=== PATIENT | female | born 1950 | race Hispanic/Latino ===

== ENCOUNTER → 2018-05-29 | Outpatient (CLI) | payer MEDICARE ==
[~2018-05-29] MED LIST: IOPAMIDOL 370 MG/ML 200 ML INFUS..BTL INJ ONE; SODIUM CHLORIDE 0.9% 50ML 50 ML ONE
[2018-05-29 08:48] LABS: BLOOD UREA NITROGEN 17 mg/dL (7-26); BUN/CREATININE RATIO 25 (6-25); CREATININE, SERUM 0.69 mg/dL (0.57-1.11); EST GLOMERULAR FILTRATION RATE > 60 ML/MIN (60-)
--- NOTE | 2018-05-29 09:46 | Diagnostic Imaging Report ---
EXAM: CT Abdomen and Pelvis WITH contrast INDICATION: Portal hypertension. COMPARISON: None. TECHNIQUE: Abdomen and pelvis were scanned utilizing a multidetector helical scanner from the lung base to the pubic symphysis after administration of IV contrast. Coronal and sagittal reformations were obtained. Routine protocol was performed. Scan was performed when during portal venous phase. IV CONTRAST: 100 cc of Isovue 370 ORAL CONTRAST: Water COMPLICATIONS: None RADIATION DOSE: Total DLP: 730.7 mGy*cm CTDIvol has been reviewed. It is below the limits set by the Radiation Protocol Committee (RPC). Dose modulation, iterative reconstruction, and/or weight based adjustment of the mA/kV was utilized to reduce the radiation dose to as low as reasonably achievable. FINDINGS: LINES and TUBES: None. LOWER THORAX: Unremarkable HEPATOBILIARY: Diffuse mild fatty liver and mildly nodular contour to the liver. Subcentimeter hyperdense focus in the right hepatic lobe measuring 8 mm on series 2, image 18. Calcified foci peripherally in the posterior right hepatic lobe may represent granulomas or potentially dropped gallstones if extrinsic to the liver. No biliary ductal dilation. Status post cholecystectomy. SPLEEN: Mild splenomegaly measuring 14.4 cm. Subcentimeter lesion within the spleen may represent a cyst or hemangioma. PANCREAS: No focal masses or ductal dilatation. ADRENALS: No adrenal nodules KIDNEYS/URETERS: Kidneys enhance symmetrically. No evidence of hydronephrosis, solid mass, or stone. GI TRACT: Small hiatal hernia. No evidence of wall thickening or distension. Appendix is normal. PELVIC ORGANS/BLADDER: Status post hysterectomy. The bladder is unremarkable. LYMPH NODES: No lymphadenopathy. VESSELS: There are scattered atherosclerotic calcifications in the aorta and branch vessels. PERITONEUM / RETROPERITONEUM: No free air or fluid. BONES AND SOFT TISSUES: No acute osseous abnormality. Grade 1 anterolisthesis of L5 on S1 with bilateral pars defects. Mild degenerative disc changes of the lumbar spine. CONCLUSION: Subcentimeter hyperdense focus in the right hepatic lobe is indeterminate by CT and a liver protocol CT or MRI may be considered for further evaluation in the setting of liver dysfunction. Hepatic steatosis and mildly nodular contour to the liver. Mild splenomegaly. Signed by: Dr. Magaly Gonzalez MD on 05/29/2018 9:42 AM
== END ==
LOC: CT 07:16
PROVIDERS: ATTEND Internal Medicine Gastroenterology
DX: K76.6 Portal hypertension (principal)
CPT/HCPCS: 36415; 74177; 82565; 84520; Q9967